=== PATIENT | female | born 1935 | race Caucasian/White ===

== ENCOUNTER 2019-07-30 02:18 | Emergency (ER) | payer MEDICARE, OTHER, SELFPAY ==
[2019-07-30 02:22] VITALS: BP 177/96; PULSE 90; RESP 18; TEMP 36.5; O2SAT 88; BMI 24.7
--- NOTE | 2019-07-30 02:24 | ED_ITS ---
Entered by Bethany Juarez, acting as scribe for HPI - Altered Mental Status General: Chief Complaint: Altered Mental Status Stated Complaint: ALTERED MENTAL STATUS Time Seen by Provider: 07/30/19 02:24 Source: family (spouse) and EMS Mode of arrival: EMS Limitations: altered mental status History of Present Illness: HPI narrative: Mrs. Arriaza is a very nice 83-year-old female who comes in after she had an episode of abnormal breathing and her had a hard time waking her up. The patient had one other episode in the past but had focal deficits that they thought was a TIA. The patient went down and was seen by a neuropsychologist in [place] and he felt that this was likely sleep paralysis. The patient was incontinent of urine and the believes there could have been shaking but is not for certain. 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 The patient is slightly confused but according to the and EMS she is gradually improving since they picked her up. The patient was incontinent of urine at home. MD complaint: altered mental status, confusion, decreased responsiveness and other (possible seizure) Onset (ago): week(s) (several weeks ago) Timing confirmed by: spouse Severity: moderate Consistency of symptoms: Getting Worse Context: other Associated symptoms: Reports no associated symptoms Treatments prior to arrival: IV fluid Review of Systems General: Reports: other (negative unless marked) Const: Denies: fever, chills, body aches, fatigue, malaise or diaphoresis Eyes: Denies: change in vision or blurry vision ENMT: Denies: throat pain, painful swallowing, hoarseness, ear pain, ear discharge, Change in hearing or nasal discharge Card: Denies: chest pain, palpitations, irregular heart rhythm, syncope, pre- syncope, shortness of breath on exertion or shortness of breath when lying down Resp: Denies: shortness of breath, productive cough, non-productive cough, wheezing, coughing up blood or chest congestion GI: Denies: abdominal pain, nausea, vomiting, vomiting blood, coffee grounds in vomit, diarrhea, constipation, cramping, blood in stool or black tarry stool : Denies: flank pain, painful urination, urinary frequency, urinary urgency, decreased urine ouput, urinary incontinence or blood in urine Musc: Denies: neck pain, back pain, extremity pain, extremity swelling, joint pain, joint swelling, joint warmth or joint stiffness Skin/Breast: Denies: rash, skin tenderness or yellow skin Neuro: Denies: headache, numbness in extremities, weakness in extremities, changes in sensation, lack of coordination, difficulty walking, dizziness, vertigo or confusion Endo: Denies: excessive thirst, tired all the time, cold intolerance, excessive sweating, flushing or hot flashes Ronnie/Lymph: Denies: easy bruising, easy bleeding, petechiae or enlarged lymph nodes All/Imm: Denies: hives, throat swelling, tongue swelling, facial swelling or acute wheezing PFSH ED PFSH: Statuses (acute, chronic, etc) shown below reflect problem list status as previously entered and may not be historically accurate Medical History (Updated 07/30/19 @ 05:47 by Isidra Watkins) Brain tumor (Acute) Hyperlipidemia (Acute) Sleep paralysis (Acute) Social History Smoking and tobacco status: never smoked Physical Exam Const: COMMON NORMALS: no apparent distress, oriented x3, no limitations, healthy appearing and well nourished EXAM LIMITATIONS: no altered mental status GENERAL APPEARANCE: cooperative, well kempt and well developed ORIENTATION/CONSCIOUSNESS: Yes awake HENMT: COMMON NORMALS: normocephalic, head/scalp atraumatic, hearing grossly normal bilaterally, external ears normal, EAC's normal, external nose normal and moist oral mucous membranes HEAD & SCALP: normal to inspection, normocephalic and atraumatic FACE & SINUS: normal facial exam and face symmetric NOSE: external nose normal and nares normal EXTERNAL EAR: Yes external ears normal EXTERNAL AUDITORY CANAL: EAC's normal MOUTH: oral and palatal mucosa normal and tongue normal Eye: COMMON NORMALS: PERRL, EOMs intact bilaterally, conjunctivae normal and no scleral icterus GENERAL EYE: normal appearance of both eyes and normal light reflex CONJUNCTIVA: Yes conjunctivae normal SCLERA: sclerae normal CORNEA: Yes corneas normal PUPIL: Yes PERRL DIRECT OPHTHALMOSCOPY: Yes normal light reflex Neck/C-Spine: COMMON NORMALS: full ROM, no lymphadenopathy, supple, no meningeal signs and no JVD GENERAL: Yes normal visual inspection and Yes trachea midline CERVICAL SPINE: Yes cervical ROM normal Chest: COMMONS NORMALS: inspection of chest normal and palpation of chest nor mal Resp: COMMON NORMALS: normal respiratory effort, no retractions, no use of accessory muscles and clear to auscultation bilaterally EFFORT & INSPECTION: Yes able to speak in complete sentences AUSCULTATION: clear to auscultation bilaterally Cardio: COMMON NORMALS: no JVD, regular rate, regular rhythm, S1 normal heart sound, S2 normal heart sound, no gallops, no clicks, no murmurs and no rub JU GULAR VENOUS DISTENTION: no JVD RATE: regular rate RHYTHM: regular rhythm HEART SOUNDS: S1 normal and S2 normal GI: COMMON NORMALS: soft to palpation, non-tender, no hepatosplenomegaly and no masses INSPECTION: Yes normal to inspection PALPATION: Yes soft and Yes no hepatosplenomegaly : COMMON NORMALS: Yes no CVA tenderness BLADDER/KIDNEY EXAM: Yes no CVA tenderness Back/Pelvis: COMMON NORMALS: no CVA tenderness, thoracic and lumbar spine normal to inspection, no thoracic nor lumbar tenderness and thoraco-lumbar ROM normal Extremity: COMMON NORMALS: normal to inspection, full ROM, normal capillary refill, no joint enlargement, no clubbing, cyanosis or edema and no calf tenderness Neuro: COMMON NORMALS: oriented x3 MENINGEAL SIGNS: Yes no meningeal signs Psych: COMMON NORMALS: mental status grossly normal, thought process normal, cooperative, affect normal, speech normal and activity/motor behavior normal APPEARANCE: Yes well kempt SPEECH: Yes normal speech THOUGHT PROCESS: normal thought process Skin: COMMON NORMALS: no rashes or lesions noted, skin turgor normal, no jaundice, no petechiae and no mottling GENERAL SKIN EXAM: no rashes or lesions noted and turgor normal Course Vital Signs: Vital signs: Vital Signs Temperature 97.7 F 07/30/19 02:22 Pulse Rate 75 07/30/19 04:19 Respiratory Rate 23 H 07/30/19 04:19 Blood Pressure 177/96 07/30/19 02:22 Pulse Oximetry 96 07/30/19 04:19 MDM - Altered Mental Status MDM Narrative: Medical decision making narrative: Mrs. Arriaza is a very nice 83-year-old female who comes in complaining of altered mental status and shaking/incontinent episode at night. Her had a difficult time arousing her but she has progressively become more alert she is back at her normal mental status at this time. She has a history of brain surgery for a benign brain tumor and had one previous episode such as this and it was determined to be sleep paralysis. The night symptoms to me sound like a seizure. The patient appeared postictal and was incontinent of urine. She does have a UTI which I will start treatment here with Rocephin. The patient does not like septic or toxic and she is declining admission for observation as well as her . I am going to start her on Keppra and have her follow-up with her brain surgeon tomorrow that is already scheduled I will also refer her to Dr. Millard and she will agrees to follow-up with her primary care physician Dr. Ashley in [place]. Lab Data: Attestation: I reviewed the patient's lab results. Labs: Lab Results 07/30/19 07/30/19 07/30/19 Range/Units 03:25 03:25 03:25 WBC 9.0 (4.0-10.0) 10^3/ uL RBC 4.40 (4.1-5.3) 10^6/u L Hgb 13.6 (11.5-15.3) g/dL Hct 40.2 (37.0-47.0) % MCV 91.4 (81-99) fL MCH 30.9 (28.0-34.0) pg MCHC 33.8 (30.0-36.0) g/dL RDW 12.4 (12.1-15.1) % Plt Count 182 (130-400) 10^3/c mm MPV 9.0 (7.4-10.4) fL Neut % (Auto) 81.9 % Lymph % (Auto) 10.9 % [place] % (Auto) 5.1 % Eos % (Auto) 1.3 % Baso % (Auto) 0.6 % Neut # (Auto) 7.4 (1.8-7.7) 10^3/u L Lymph # (Auto) 1.0 (0.8-4.8) 10^3/u L [place] # (Auto) 0.5 (0.2-0.9) 10^3/u L Eos # (Auto) 0.1 (0.0-0.8) 10^3/u L Baso # (Auto) 0.1 (0.0-0.1) 10^3/u L Nucleated RBC % (a uto) 0 % Nucleated RBCs # 0.0 /100WBC Sodium 139 (136-145) mmol/L Potassium 4.0 (3.5-5.1) mmol/L Chloride 102 (98-107) mmol/L Carbon Dioxide 24 (22-29) mmol/L Anion Gap 17.0 (5-19) BUN 12 (8-23) mg/dL Creatinine 0.6 (0.5-0.9) mg/dL Glucose 140 H (74-106) mg/dL Lactic Acid 0.5 (0.5-2.2) mmol/L Calcium 9.4 (8.5-10.5) mg/dL Magnesium 2.2 (1.7-2.3) mg/dL Total Bilirubin 0.2 (0.15-1.2) mg/dL AST 26 (0-32) U/L ALT 26 (0-33) U/L Alkaline Phosphata se 77 (35-105) IU/L Troponin T Baselin e (0-10) ng/mL Troponin T 120 Min [place] (0-10) ng/mL Delta Troponin T (0-10) ABS# Total Protein 6.7 (6.6-8.7) g/dL Albumin 3.9 (3.5-5.2) g/dL Globulin 2.8 (1.3-4.6) g/dL Urine Color (Yellow) Urine Appearance (CLEAR) Urine pH (5-7) Ur Specific Gravit y (1.005-1.030) Urine Protein (Negative) Urine Glucose (UA) (Normal) Urine Ketones (Negative) Urine Occult Blood (Negative) Urine Nitrate (Negative) Urine Bilirubin (NEGATIVE) Urine Urobilinogen (Negative) mg/dL Ur Leukocyte Denae ase (Negative) Urine RBC (0-2) /hpf Urine WBC (0-5) /hpf Ur Squamous Epith Cells (0-5) Urine Bacteria (NONE) Hyaline Casts 07/30/19 07/30/19 07/30/19 Range/Units 03:25 04:20 04:46 WBC (4.0-10.0) 10^3/ uL RBC (4.1-5.3) 10^6/u L Hgb (11.5-15.3) g/dL Hct (37.0-47.0) % MCV (81-99) fL MCH (28.0-34.0) pg MCHC (30.0-36.0) g/dL RDW (12.1-15.1) % Plt Count (130-400) 10^3/c mm MPV (7.4-10.4) fL Neut % (Auto) % Lymph % (Auto) % [place] % (Auto) % Eos % (Auto) % Baso % (Auto) % Neut # (Auto) (1.8-7.7) 10^3/u L Lymph # (Auto) (0.8-4.8) 10^3/u L [place] # (Auto) (0.2-0.9) 10^3/u L Eos # (Auto) (0.0-0.8) 10^3/u L Baso # (Auto) (0.0-0.1) 10^3/u L Nucleated RBC % (a uto) % Nucleated RBCs # /100WBC Sodium (136-145) mmol/L Potassium (3.5-5.1) mmol/L Chloride (98-107) mmol/L Carbon Dioxide (22-29) mmol/L Anion Gap (5-19) BUN (8-23) mg/dL Creatinine (0.5-0.9) mg/dL Glucose (74-106) mg/dL Lactic Acid (0.5-2.2) mmol/L Calcium (8.5-10.5) mg/dL Magnesium (1.7-2.3) mg/dL Total Bilirubin (0.15-1.2) mg/dL AST (0-32) U/L ALT (0-33) U/L Alkaline Phosphata se (35-105) IU/L Troponin T Baselin e 38 H (0-10) ng/mL Troponin T 120 Min [place] 31.33 H (0-10) ng/mL Delta Troponin T -6.67 L (0-10) ABS# Total Protein (6.6-8.7) g/dL Albumin (3.5-5.2) g/dL Globulin (1.3-4.6) g/dL Urine Color Yellow (Yellow) Urine Appearance Sl hazy (CLEAR) Urine pH 6 (5-7) Ur Specific Gravit y 1.015 (1.005-1.030) Urine Protein Neg (Negative) Urine Glucose (UA) Norm (Normal) Urine Ketones Negative (Negative) Urine Occult Blood Neg (Negative) Urine Nitrate Positive H (Negative) Urine Bilirubin Neg (NEGATIVE) Urine Urobilinogen Norm (Negative) mg/dL Ur Leukocyte Denae ase Negative (Negative) Urine RBC 0-4 H (0-2) /hpf Urine WBC 5-10 H (0-5) /hpf Ur Squamous Epith Cells 0-4 H (0-5) Urine Bacteria 4+ H (NONE) Hyaline Casts 0-4 H Imaging Data^: CT Head: Radiologist's impression: [place] [address] CT Scan Report Signed Patient: Rosa Elena Arriaza Unit #: [id number] : 1935 Age/Sex: 83 / F ADM Date: 07/30/19 Loc: ER Room/Bed: Attending Dr: Ordering Provider/Ordering MD: Isidra Watkins DO Date of Service: 07/30/19 Procedure(s): CT head wo con* [id number] Accession Number(s): [id number] Report Number: [id number] PROCEDURE INFORMATION: Exam: CT Head Without Contrast Exam date and time: 07/30/2019 2:31 AM Age: 83 years old Clinical indication: Syncope and collapse; Prior surgery; Surgery date: 6+ months; Surgery type: Brain tumor; Additional info: Gold/ams TECHNIQUE: Imaging protocol: Computed tomography of the head without contrast. Total DLP: 811.94 mGy-cm Radiation optimization: All CT scans at this facility use at least one of these dose optimization techniques: automated exposure control; mA and/or kV adjustment per patient size (includes targeted exams where dose is matched to clinical indication); or iterative reconstruction. COMPARISON: CT head wo con* [id number] 05/20/2019 5:10 PM FINDINGS: Brain: There is diffuse cerebral atrophy and chronic microvascular white matter disease. There is focal calcification and encephalomalacia in the posterior inferior left frontal lobe and adjacent temporal lobe tip, unchanged since 05/20/2019 consistent with surgical changes. There is no acute intracranial hemorrhage. Ventricles: There is mild ex vacuo dilation of the lateral ventricles. The basal cisterns are unremarkable. Bones/joints: Left temporal craniotomy and surgical changes of the left frontal and temporal skull. No acute calvarial fracture. Sinuses: The paranasal sinuses are clear. Mastoid air cells: The mastoid air cells are clear. Soft tissues: The visible extracranial soft tissues are unremarkable. CT/CT head wo con* [id number] IMPRESSION: 1. No acute findings. 2. Stable postoperative findings described above. Radiation Dose CTDIVOL = (mGy): DLP = 811.94 (mGy-cm) Dictated By: Delgado Walton MD Signed By: Delgado Walton MD Signed Date/Time: 07/30/19335 DD/ 4 CXR: My impression: No acute cardiopulmonary disease EKG Data^: EKG 1: Attestation: I personally reviewed and interpreted this EKG as follows: EKG interpretation date: 07/30/19 EKG interpretation time: 02:51 Interpretation: Normal sinus rhythm at 73 beats a minute, normal axis, normal intervals, no acute ST or T wave changes. EKG 2: Attestation: I personally reviewed and interpreted this EKG as follows: EKG interpretation date: 07/30/19 EKG interpretation time: 04:39 Interpretation: Normal sinus rhythm at 68 beats a minute, normal axis, normal intervals, no acute ST or T wave changes. Discharge Plan Discharge Patient Disposition: Home, Self-Care Clinical Impression: Seizure, Sleep paralysis, Acute UTI Condition: Stable Prescriptions: New cefdinir 300 mg capsule 300 mg PO Q12H 10 Days Qty: 20 RF: 0 Keppra 500 mg tablet 500 mg PO BID 14 Days Qty: 28 RF: 0 Discharge Orders: Discharge Order (Routine); Ordered 07/30/19 Ordered By: Isidra Watkins Referrals: Cindy Millard MD [Physician] - 1-3 days Brittnee Ashley MD [Primary Care Provider] - 1-3 days Discharge Diet: Usual diet Discharge Activity: Increase activity as tolerated Patient Instructions: Urinary Tract Infection in Women (ED), New-Onset Seizure in Adults (ED), Seizures Activity Restrictions/Additional Instructions: Please return to the ER immediately for any of the signs or symptoms listed on your discharge instruction sheets, worsening/changing of your symptoms, you are not getting better as quickly as expected, or for ANY other cause or concerns. No driving, no working at heights, no tub baths, no swimming alone or anything else that would put you at risk should you have another seizure. Be certain to follow-up with your surgeon as scheduled for his opinion and evaluation. Return to the ER should you change your mind and want to come in for observation as I have offered or your symptoms change or worsen in any way. Coding Level of Care Code ED Pool Installer for Chg Fwd Exam Problem Focused The documentation recorded by the Larry sotelo Bridget Annette, accurately reflects the service I personally performed and the decisions made by me, Isidra Watkins Jul 30, 2019 02:18
--- NOTE | 2019-07-30 02:29 | XR_ITS ---
WS: [id number] Portable AP upright chest, 07/30/2019 Clinical Data: cough Comparison: Portable chest, 05/20/2019. Findings: No nodules, masses or effusions are seen. The heart is normal. The pulmonary vascularity is not increased. No pneumonia or pneumothorax is seen. The aortic arch and descending aorta are tortuo us. XR/XR chest 1V portable [id number] Impression: Atherosclerosis.
--- NOTE | 2019-07-30 02:30 | CTR_ITS ---
PROCEDURE INFORMATION: Exam: CT Head Without Contrast Exam date and time: 07/30/2019 2:31 AM Age: 83 years old Clinical indication: Syncope and collapse; Prior surgery; Surgery date: 6+ months; Surgery type: Brain tumor; Additional info: Gold/ams TECHNIQUE: Imaging protocol: Computed tomography of the head without contrast. Total DLP: 811.94 mGy-cm Radiation optimization: All CT scans at this facility use at least one of these dose optimization techniques: automated exposure control; mA and/or kV adjustment per patient size (includes targeted exams where dose is matched to clinical indication); or iterative reconstruction. COMPARISON: CT head wo con* [id number] 05/20/2019 5:10 PM FINDINGS: Brain: There is diffuse cerebral atrophy and chronic microvascular white matter disease. There is focal calcification and encephalomalacia in the posterior inferior left frontal lobe and adjacent temporal lobe tip, unchanged since 05/20/2019 consistent with surgical changes. There is no acute intracranial hemorrhage. Ventricles: There is mild ex vacuo dilation of the lateral ventricles. The basal cisterns are unremarkable. Bones/joints: Left temporal craniotomy and surgical changes of the left frontal and temporal skull. No acute calvarial fracture. Sinuses: The paranasal sinuses are clear. Mastoid air cells: The mastoid air cells are clear. Soft tissues: The visible extracranial soft tissues are unremarkable. CT/CT head wo con* [id number] IMPRESSION: 1. No acute findings. 2. Stable postoperative findings described above. Radiation Dose CTDIVOL = (mGy): DLP = 811.94 (mGy-cm)
--- NOTE | 2019-07-30 02:31 | ECG_ITS ---
Measurements Intervals [place] Rate: 68 P: 60 SC: 147 QRS: 53 QRSD: 101 T: 58 QT: 393 QTc: 420 SINUS RHYTHM Compared to ECG 05/20/2019 17:41:45 No significant changes Electronically Signed On 07-30-2019 11:33:31 DIFFERENTIAL SPECIALIST by Rip Terrell M.D. [id number]
--- NOTE | 2019-07-30 02:58 | PC.NURSE ---
Changed patient out of clothes and placed her in a gown and a fresh brief. Patient's clothing was covered in urine and was placed in a belonging bag. Patient had a gold cross necklace, necklace was given to for safe keeping.
[2019-07-30] MEDS: sodium chloride 0.9% 1,000 ML 100 ML IV (03:19)
[2019-07-30 03:32] LABS: Basophils # 0.1 10^3/uL (0.0-0.1); Basophils % 0.6 %; Eosinophils # 0.1 10^3/uL (0.0-0.8); Eosinophils % 1.3 %; Hematocrit 40.2 % (37.0-47.0); Hemoglobin 13.6 g/dL (11.5-15.3); Lymphocytes % 10.9 %; Mean Corpuscular HGB Conc 33.8 g/dL (30.0-36.0); Mean Corpuscular Hemoglobin 30.9 pg (28.0-34.0); Mean Corpuscular Volume 91.4 fL (81-99); Monocytes # 0.5 10^3/uL (0.2-0.9); Monocytes % 5.1 %; Neutrophils # 7.4 10^3/uL (1.8-7.7); Neutrophils % 81.9 %; Nucleated Red Blood Cells % 0 %; Platelet Count 182 10^3/cmm (130-400); Red Cell Distribution Width 12.4 % (12.1-15.1)
[2019-07-30 03:51] LABS: Alanine Aminotransferase 26 U/L (0-33); Albumin Level 3.9 g/dL (3.5-5.2); Alkaline Phosphatase 77 IU/L (35-105); Aspartate Amino Transferase 26 U/L (0-32); Blood Urea Nitrogen 12 mg/dL (8-23); Calcium 9.4 mg/dL (8.5-10.5); Carbon Dioxide 24 mmol/L (22-29); Chloride 102 mmol/L (98-107); Creatinine Clr Calc Pharmacy 47.8117; Globulin 2.8 g/dL (1.3-4.6); Glucose 140 mg/dL (74-106); Magnesium 2.2 mg/dL (1.7-2.3); Sodium 139 mmol/L (136-145); Total Bilirubin 0.2 mg/dL (0.15-1.2); Total Protein 6.7 g/dL (6.6-8.7)
[2019-07-30 03:53] LABS: Lactic Sepsis W/Reflex 0.5 mmol/L (0.5-2.2)
[2019-07-30 03:54] LABS: Troponin(5th) Baseline 38 ng/mL (0-10)
[2019-07-30 04:19] VITALS: PULSE 75; RESP 23; O2SAT 96
--- NOTE | 2019-07-30 04:31 | ECG_ITS ---
Measurements Intervals [place] Rate: 73 P: 51 MD: 139 QRS: 34 QRSD: 106 T: 51 QT: 395 QTc: 437 SINUS RHYTHM Compared to ECG 05/20/2019 17:41:45 No significant changes Electronically Signed On 07-30-2019 11:37:29 HAY RAKE OPERATOR by Rip Terrell M.D. [id number]
--- NOTE | 2019-07-30 04:39 | PC.NURSE ---
EKG done at 0435 and shown to ER doctor.
[2019-07-30 05:13] LABS: Troponin 5 2HR 31.33 ng/mL (0-10)
[2019-07-30 05:13] LABS: Bilirubin Urine Neg (NEGATIVE); Blood Urine Neg (Negative); Glucose Urine UA Norm (Normal); Ketones Urine Negative (Negative); Nitrate Urine Positive (Negative); Protein Urine Neg (Negative); Specific Gravity, Urine 1.015 (1.005-1.030); Urine Appearance SL Hazy (CLEAR); Urine Color Yellow (Yellow); Urobilinogen Urine Norm (Negative); pH Urine 6 (5-7)
[2019-07-30 05:14] LABS: Leukocyte Esterase Urine Negative (Negative)
[2019-07-30 05:15] LABS: Bacteria Urine 4+; Hyaline Casts Urine 0-4; RBC Urine 0-4 /hpf (0-2); Squamous Epithelial Cell Urine 0-4 (0-5)
[2019-07-30 05:16] LABS: Add Urine Culture? Yes
[2019-07-30 05:17] LABS: Troponin 5 2HR Delta -6.67 ABS# (0-10)
[2019-07-30] MEDS: cefTRIAXone 1,000 MG in sodium chloride 0.9% (plus) 50 ML 100 MG IV (06:15)
[2019-07-30] MEDS: levETIRAcetam 500 mg Tablet PO (06:18)
[2019-07-30 06:31] VITALS: PULSE 76; RESP 19
--- NOTE | 2019-07-31 14:14 | DCPLANNER ---
luncheonette manager had message to schedule a follow up appointment for patient with Dr. Millard. luncheonette manager called the office of Dr. Millard, spoke with Sharri, a follow up appointment was scheduled for August at 3:[address] Millard. luncheonette manager called patient, spoke with patients , gave the the appointment information.
--- NOTE | 2019-09-09 15:45 | DCPLANNER ---
Patient did not attend appointment scheduled with Dr. Millard.
== END 2019-07-30 06:40 | disposition home or self-care (01) ==
PROVIDERS: Emergency Provider Emergency Medicine; PCP Family Medicine
DX: G47.53 Recurrent isolated sleep paralysis (principal); R56.9 Unspecified convulsions; N39.0 Urinary tract infection, site not specified; E78.5 Hyperlipidemia, unspecified
CPT/HCPCS: 36415; 70450; 71045; 80053; 81001; 83605; 83735; 84484; 85025; 87077; 87086; 87186; 93005; 96360; 96365; 99284; J0696; J7030

== ENCOUNTER → 2020-03-28 12:38 | Outpatient (BNVA) | payer MEDICARE, OTHER, SELFPAY | PROVIDERS: PCP Family Medicine; Visit Provider Family Medicine | DX: E78.5 Hyperlipidemia, unspecified (principal); Z79.899 Other long term (current) drug therapy | CPT/HCPCS: 80053; 80061; 84443; 85025 ==

== ENCOUNTER → 2020-06-01 10:47 | Outpatient (BNVA) | payer MEDICARE, OTHER, SELFPAY | PROVIDERS: PCP Family Medicine; Visit Provider Family Medicine | DX: Z20.828 Contact with and (suspected) exposure to other viral communicable diseases (principal) | CPT/HCPCS: 87635 ==

== ENCOUNTER → 2021-01-10 14:23 | Outpatient (BNVA) | payer MEDICARE, OTHER, SELFPAY | PROVIDERS: PCP Family Medicine; Visit Provider Nurse Practitioner Family | DX: F03.90 Unspecified dementia, unspecified severity, without behavioral disturbance, psychotic disturbance, mood disturbance, and anxiety (principal); K12.1 Other forms of stomatitis; R56.9 Unspecified convulsions | CPT/HCPCS: 80053; 82306; 82607; 84443; 85025 ==

== ENCOUNTER → 2021-03-08 11:41 | Outpatient (BNVA) | payer MEDICARE, OTHER, SELFPAY | PROVIDERS: PCP Family Medicine; Visit Provider Nurse Practitioner Family | DX: R06.02 Shortness of breath (principal); I70.0 Atherosclerosis of aorta | CPT/HCPCS: 71046 ==

== ENCOUNTER 2021-03-14 13:30 | Outpatient (CLI) | payer MEDICARE, OTHER, SELFPAY ==
--- NOTE | 2021-03-14 13:30 | CT_ITS ---
WS: [id number] CT CHEST TECHNIQUE: Contrast enhanced CT of the chest with coronal and sagittal reformatted images. CLINICAL INFORMATION: R06.02 - Shortness of breath COMPARISON: Radiograph March 08, 2021 DLP: 634.[address] scans at [facility] use at least one of these dose optimization techniques: automated e xposure control; mA and/or kV adjustment per patient size (includes targeted exams where dose is matc hed to clinical indication); or iterative reconstruction. FINDINGS: Mild chronic emphysematous changes. No acute pulmonary infiltrates. No focal pneumonia or pleural flu id. Subsegmental atelectasis in the lung bases. A few small calcified granulomas in the lung bases. Normal caliber thoracic aorta. Proximal main pulmonary arteries appear normal. No mediastinal or lisbet r lymphadenopathy. No axillary lymphadenopathy. Diffuse fatty infiltration liver. Cholecystectomy cli ps. 10 mm low-attenuation lesion right hepatic lobe likely hepatic cyst or cavernous hemangioma. Sple randy granulomas. Normal GE junction. Adrenal glands are normal. Partially visualized left renal angiom yolipoma measuring 5.3 x 2.9 cm.Recommend further evaluation with contrast-enhanced CT abdomen pelvis . Angiomyolipomas can result in retroperitoneal hemorrhage. Small cortical cyst upper pole left catherinene y. CT/CT chest w con* [id number] IMPRESSION: 1. Mild chronic emphysematous changes. No acute pulmonary infiltrates. 2. No focal pneumonia or pleural fluid. 3. No mediastinal or hilar lymphadenopathy. 4. 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 Recommend further evaluation with contrast-enhanced CT abdomen pelvis. Angiom yolipomas can result in retroperitoneal hemorrhage.
[2021-03-14 14:19] LABS: Blood Urea Nitrogen 14 mg/dL (8-23)
[2021-03-14] MEDS: iohexol 300 mg/mL 100 mL Btl IV (14:27)
== END 2021-03-14 13:31 | disposition home or self-care (01) ==
PROVIDERS: PCP Family Medicine; Visit Provider Nurse Practitioner Family
DX: R06.02 Shortness of breath (principal); D49.6 Neoplasm of unspecified behavior of brain; D17.71 Benign lipomatous neoplasm of kidney
CPT/HCPCS: 71260; 82565; 84520; Q9967

== ENCOUNTER 2021-03-24 12:47 | Outpatient (CLI) | payer MEDICARE, OTHER, SELFPAY ==
[2021-03-24] MEDS: iohexol 300 mg/mL 50 mL Btl PO (13:15)
--- NOTE | 2021-03-24 13:30 | CT_ITS ---
WS: [id number] CT ABDOMEN AND PELVIS WITH CONTRAST HISTORY: D17.9 - Benign lipomatous neoplasm, unspecified TECHNIQUE: Imaging performed of the abdomen and pelvis with IV contrast. Single phase imaging of the abdomen. Coronal and sagittal reformats are submitted. All CT scans at [facility] use at [facility] one of these dose optimization techniques: automated exposure control; mA and/or kV adjustment per patient size (includes targeted exams where dose is matched to clinical indication); or iterative re construction. IV CONTRAST: Omnipaque 300; 95 mL IV. Oral contrast: Yes. DLP: 1007.22 mGycm COMPARISON: None available. Lower thorax: Clear with a few granulomata. Heart is normal size. Small pericardial effusion. Small h iatal hernia. Liver/biliary system: Normal size with no intrahepatic dilatation. Gallbladder: Status post cholecystectomy. Pancreas: Normal size pancreas and pancreatic duct. No adjacent inflammation. Spleen: Normal size with granulomata. Adrenal glands: Normal. Right kidney: Normal. Left kidney: Normal size LEFT kidney. There is a fat-containing mass extending laterally from the sup erior LEFT kidney. This mass measures 5.8 x 3.0 cm and extends over length of 2.7 cm. Mass abuts the lateral renal cortex with areas of scar. No enhancement or associated hemorrhage. No obstruction of t he kidney. Aorta: Mild atherosclerosis with no aneurysm. Lymphadenopathy: None. Free fluid: None. GI tract: Extensive fecal retention and constipation. No obstruction. Abdominal wall: Unremarkable abdominal wall. No hernia. Pelvis: Prior hysterectomy. Normal urinary bladder. No adenopathy. Bones: Thoracolumbar scoliosis. Severe degenerative disc disease and osteochondrosis at L2-3. CT/CT abdomen pelvis w con* [id number] IMPRESSION: 1. Fat-containing mass associated with the superior lateral LEFT kidney with a cortical scar. Most typical for benign angiomyolipoma. Mass measures 5.8 x 3.0 cm. No associated hemorrhage at this time. 2. Prior cholecystectomy. 3. Diffuse constipation.
[2021-03-24] MEDS: iohexol 300 mg/mL 100 mL Btl IV (13:46)
== END 2021-03-24 12:48 | disposition home or self-care (01) ==
PROVIDERS: PCP Nurse Practitioner Family; Visit Provider Nurse Practitioner Family
DX: D17.9 Benign lipomatous neoplasm, unspecified (principal); Z90.49 Acquired absence of other specified parts of digestive tract; K59.00 Constipation, unspecified
CPT/HCPCS: 74177; Q9967

== ENCOUNTER 2022-02-01 06:00 | Outpatient (RCR) | payer MEDICARE, OTHER, SELFPAY | END 2022-02-28 23:59 | disposition home or self-care (01) | LOC: TPT 06:00 | PROVIDERS: PCP Nurse Practitioner Family; Referring Provider Family Medicine; Visit Provider Family Medicine | DX: R26.89 Other abnormalities of gait and mobility (principal); Z86.011 Personal history of benign neoplasm of the brain | CPT/HCPCS: 97110; 97116; 97162 ==

== ENCOUNTER 2022-03-01 06:00 | Outpatient (RCR) | payer MEDICARE, OTHER, SELFPAY | END 2022-03-30 23:59 | disposition home or self-care (01) | LOC: TPT 06:00 | PROVIDERS: PCP Nurse Practitioner Family; Visit Provider Family Medicine | DX: R26.89 Other abnormalities of gait and mobility (principal) | CPT/HCPCS: 97110; 97116; 97162 ==

== ENCOUNTER 2022-03-31 06:00 | Outpatient (RCR) | payer MEDICARE, OTHER, SELFPAY | END 2022-04-30 23:59 | disposition home or self-care (01) | LOC: TPT 06:00 | PROVIDERS: PCP Nurse Practitioner Family; Visit Provider Family Medicine | DX: R26.89 Other abnormalities of gait and mobility (principal); Z86.011 Personal history of benign neoplasm of the brain | CPT/HCPCS: 97110; 97164 ==

== ENCOUNTER 2022-06-04 09:33 | Emergency (ER) | payer MEDICARE, OTHER, SELFPAY ==
[2022-06-04] VITALS (8 sets, daily range): BP systolic 122–166; BP diastolic 66–97; PULSE 71–80; RESP 15–24; TEMP 36.5; O2SAT 91–97
--- NOTE | 2022-06-04 09:44 | ECG_ITS ---
[facility] Test Date: 2022-06-04 Pat Name: Rosa Elena Arriaza Department: Room: Gender: Female Anchor Operator: : 1935 Requested By: Holden Damon Order Number: [id number] Roberth MD: Jarvsi Burger M.D. Measurements Intervals [place] Rate: 74 P: 58 MO: 135 QRS: 58 QRSD: 85 T: 63 QT: 391 QTc: 435 Interpretive Statements SINUS RHYTHM Compared to ECG 07/30/2019 04:39:59 No significant changes Electronically Signed On 06-04-2022 19:03:59 FIT MODEL by Jarvis Burger M.D. [id number]
--- NOTE | 2022-06-04 09:47 | XR_ITS ---
WS: [id number] EXAMINATION: XR chest 1V portable [id number] DATE: 06/04/2022 9:59 AM CLINICAL HISTORY: Short of breath TECHNIQUE: A single, portable frontal chest x-ray was obtained. COMPARISON: 03/08/2021 X-RAY FINDINGS: The lungs are clear with a small discoid atelectatic change in the left costophrenic angle.. Pleural spaces are clear. No pleural effusions or pneumothorax. Cardiomediastinal silhouette is normal. No evidence for pulmonary edema. Soft tissue and osseous structures are unremarkable. No tubes or lines are present. XR/XR chest 1V portable [id number] IMPRESSION: Unremarkable frontal portable chest x-ray.
--- NOTE | 2022-06-04 10:25 | W.ED.SOB ---
HPI - SOB/Dyspnea General: Chief Complaint: Shortness of Breath/Dyspnea Stated Complaint: SOB Time Seen by Provider: 06/04/22 09:42 Source: patient Mode of arrival: ambulatory History of Present Illness: HPI Narrative: 86-year-old female presents emergency room complaining of shortness of breath been worsening for last couple days. Patient has a history of COPD previously a few months ago had COVID. No fever no abdominal pain no chest pain cough nonproductive no orthopnea. MD elicited complaint: shortness of breath and cough Pertinent past history: COPD Onset (ago): day(s) (2) Timing: constant Severity: moderate Exacerbating factors: nothing Relieving factors: nothing Known history of: COPD Associated symptoms: Deny abdominal pain, chest congestion, chest pain, cough, diaphoresis, dizziness, extremity pain, fever(s), hemoptysis, lightheadedness, myalgias, orthopnea, palpitations, paresthesias, polydipsia, polyuria, rash, sense of impending doom, syncope or vomiting Treatment prior to arrival: none Review of Systems Const: Denies: fever(s) or diaphoresis ENMT: Denies: throat pain, ear or mastoid pain, nasal discharge or nasal congestion Card: Denies: chest pain, palpitations, lightheadedness, syncope or orthopnea Resp: Denies: hemoptysis or chest congestion GI: Denies: abdominal pain or vomiting : Denies: flank pain, difficulty voiding, dysuria, urinary frequency or urinary urgency Musc: Denies: extremity pain Skin/Breast: Denies: rash or pruritus Neuro: Denies: dizziness Endo: Denies: polyuria or polydipsia PFSH ED PFSH: Medical History Brain tumor Hyperlipidemia Sleep paralysis Social History Smoking and tobacco status: never smoked Second hand smoke exposure: No Alcohol intake: never Caregiver/support person: Yes Lives independently: Yes (spouse) Household members: spouse Marital status: service: No Current occupational status: retired History of recent travel: No Current gender identity: Female Special wong needs: No Agree to transfusion: Yes Physical Exam Const: COMMON NORMALS: no acute distress GENERAL APPEARANCE: cooperative and comfortable ORIENTATION/CONSCIOUSNESS: Yes awake, Yes oriented to person, Yes oriented to place and Yes oriented to time HENMT: COMMON NORMALS: normocephalic, atraumatic and hearing grossly normal bilaterally HEAD & SCALP: normocephalic and atraumatic Resp: COMMON NORMALS: normal respiratory effort, No retractions, No use of accessory muscles and clear to auscultation bilaterally AUSCULTATION: clear to auscultation bilaterally Cardio: COMMON NORMALS: regular rate, regular rhythm and No murmurs present (Cardio) RATE: regular rate RHYTHM: regular rhythm GI: COMMON NORMALS: Soft to palpation and No hepatosplenomegaly present AUSCULTATION: Yes normoactive bowel sounds PALPATION: Yes Soft to palpation, No Tenderness to palpation present (GI), No Guarding due to palpation present (GI) and Yes No hepatosplenomegaly present Extremity: COMMON NORMALS: normal to inspection, capillary refill normal, no clubbing, cyanosis or edema, no calf tenderness and no pedal edema Neuro: SENSORIUM/ORIENTATION: Yes oriented to person, Yes oriented to place and Yes oriented to time Skin: COMMON NORMALS: no rashes or lesions noted GENERAL SKIN EXAM: no rashes or lesions noted Course Vital Signs: Vital signs: Vital Signs Temperature 97.7 F 06/04/22 09:38 Pulse Rate 71 06/04/22 11:30 Respiratory Rate 15 06/04/22 11:30 Blood Pressure 122/66 06/04/22 11:30 Pulse Oximetry 91 06/04/22 11:30 Oxygen Delivery Me thod 06/04/22 11:07 MDM - SOB/Dyspnea Medical Decision Making Labs and imaging reviewed. Chest x-ray normal normal sinus rhythm EKG without any acute ST changes not really complaining of any chest pain. On exertion with ambulation her oxygen saturation rations actually improved. We will discharge her home have her follow-up with her primary care doctor if she has persistent symptoms. Medical Records I reviewed the patient's medical records. Lab Data I reviewed the patient's lab results. 06/04/22 10:19 06/04/22 10:19 Labs/Radiology: Radiology Impressions Chest X-Ray 06/04/22 09:47 IMPRESSION: Unremarkable frontal portable chest x-ray. Laboratory Results WBC 6.9 10^3/uL (4.0-10.0) 06/04/22 10:19 RBC 4.66 10^6/uL (4.1-5.3) 06/04/22 10:19 Hgb 14.7 g/dL (11.5-15.3) 06/04/22 10:19 Hct 44.4 % (37.0-47.0) 06/04/22 10:19 MCV 95.3 fl (81-99) 06/04/22 10:19 MCH 31.5 pg (28.0-34.0) 06/04/22 10:19 MCHC 33.1 g/dL (30.0-36.0) 06/04/22 10:19 RDW 12.8 % (12.1-15.1) 06/04/22 10:19 Plt Count 227 10^3/cmm (130-400) 06/04/22 10:19 MPV 9.4 fL (7.4-10.4) 06/04/22 10:19 Neut % (Auto) 63.3 % 06/04/22 10:19 Lymph % (Auto) 26.0 % 06/04/22 10:19 [place] % (Auto) 7.1 % 06/04/22 10:19 Eos % (Auto) 2.6 % 06/04/22 10:19 Baso % (Auto) 0.7 % 06/04/22 10:19 Neut # (Auto) 4.35 10^3/uL (1.8-7.7) 06/04/22 10:19 Lymph # (Auto) 1.8 10^3/uL (0.8-4.8) 06/04/22 10:19 [place] # (Auto) 0.5 10^3/uL (0.2-0.9) 06/04/22 10:19 Eos # (Auto) 0.2 10^3/uL (0.0-0.8) 06/04/22 10:19 Baso # (Auto) 0.1 10^3/uL (0.0-0.1) 06/04/22 10:19 Nucleated RBC % (auto) 0 % 06/04/22 10:19 Nucleated RBCs # 0.0 /100WBC 06/04/22 10:19 Sodium 133 mmol/L (136-145) L 06/04/22 10:19 Potassium 3.5 mmol/L (3.5-5.1) 06/04/22 10:19 Chloride 98 mmol/L (98-107) 06/04/22 10:19 Carbon Dioxide 24 mmol/L (22-29) 06/04/22 10:19 Anion Gap 14.5 (5-19) 06/04/22 10:19 BUN 9 mg/dL (8-23) 06/04/22 10:19 Creatinine 0.6 mg/dL (0.5-0.9) 06/04/22 10:19 GFR Calculation Not Reportable 06/04/22 10:19 Glucose 129 mg/dL (65-115) H 06/04/22 10:19 Calculated Osmolality 276 mOsm/kg (285-295) L 06/04/22 10:19 Calcium 9.3 mg/dL (8.5-10.5) 06/04/22 10:19 Discharge Plan Discharge Patient Disposition: Home Clinical Impression: ARVIZU (dyspnea on exertion) Condition: Stable Prescriptions: No Action levetiracetam 500 mg tablet 500 mg PO BID Qty: 60 11RF biotin 5 mg capsule 5 mg PO DAILY meloxicam 7.5 mg tablet 7.5 mg PO DAILY Qty: 14 0RF donepezil [Aricept] 5 mg tablet 10 mg PO DAILY Qty: 60 1RF mirtazapine 7.5 mg tablet 7.5 mg PO BEDTIME simvastatin 20 mg tablet 20 mg PO BEDTIME Discharge Orders: Discharge ED (Routine); Ordered 06/04/22 Ordered By: Holden Aquino Referrals: Brittnee Ashley MD [Primary Care Provider] - Discharge Diet: Usual diet Discharge Activity: Increase activity as tolerated Patient Instructions: Opioid Safety, Pain Management Activity Restrictions/Additional Instructions: You were seen today with a complaint of shortness of breath EKG was unremarkable and your chest x-ray was normal. Your ambulatory testing for oxygen saturations was also normal, in fact it actually improved with walking. If your symptoms persist follow-up with your primary care doctor. 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
[2022-06-04 10:28] LABS: Basophils # 0.1 10^3/uL (0.0-0.1); Basophils % 0.7 %; Eosinophils # 0.2 10^3/uL (0.0-0.8); Eosinophils % 2.6 %; Hematocrit 44.4 % (37.0-47.0); Hemoglobin 14.7 g/dL (11.5-15.3); Lymphocytes # 1.8 10^3/uL (0.8-4.8); Mean Corpuscular HGB Conc 33.1 g/dL (30.0-36.0); Mean Corpuscular Hemoglobin 31.5 pg (28.0-34.0); Mean Corpuscular Volume 95.3 fl (81-99); Mean Platelet Volume 9.4 fL (7.4-10.4); Monocytes # 0.5 10^3/uL (0.2-0.9); Monocytes % 7.1 %; Neutrophils # 4.35 10^3/uL (1.8-7.7); Neutrophils % 63.3 %; Nucleated Red Blood Cells % 0 %; Platelet Count 227 10^3/cmm (130-400); Red Blood Count 4.66 10^6/uL (4.1-5.3); Red Cell Distribution Width 12.8 % (12.1-15.1); White Blood Count 6.9 10^3/uL (4.0-10.0)
[2022-06-04 10:49] LABS: Anion Gap 14.5 (5-19); Blood Urea Nitrogen 9 mg/dL (8-23); Calcium 9.3 mg/dL (8.5-10.5); Carbon Dioxide 24 mmol/L (22-29); Chloride 98 mmol/L (98-107); Glucose 129 mg/dL (65-115); Osmolality Calculated 276 mOsm/kg (285-295); Potassium 3.5 mmol/L (3.5-5.1); Sodium 133 mmol/L (136-145)
[2022-06-04] MEDS: ipratropium-albuterol 3 mL Neb INHALATION (10:58)
--- NOTE | 2022-06-04 10:58 | PC.NURSE ---
PT PLACED ON CONTINUOUS NIBP, SPO2, AND CM
== END 2022-06-04 12:10 | disposition home or self-care (01) ==
PROVIDERS: Emergency Provider Family Medicine; PCP Family Medicine
DX: R06.00 Dyspnea, unspecified (principal); E78.5 Hyperlipidemia, unspecified
CPT/HCPCS: 71045; 80048; 85025; 93005; 94640; 96374; 99285; J2930